=== PATIENT | female | born 1945 | race Caucasian/White ===

== ENCOUNTER 2020-11-04 10:02 | Emergency (ER) | payer OTHER ==
[~2020-11-04] VITALS: Ht 167.6 cm; Wt 89.8 kg
[2020-11-04 10:43] LABS: BASOPHILS ABSOLUTE AUTO 0.04 K/mm3 (0.00-0.23); BASOPHILS PERCENT AUTO 1 % (0-2); EOSINOPHILS ABSOLUTE AUTO 0.15 K/mm3 (0.00-0.68); EOSINOPHILS PERCENT AUTO 2 % (0-6); Hematocrit 42.3 % (33.0-51.0); Hemoglobin 13.1 g/dL (11.5-16.0); IMMATURE GRAN ABSOLUTE AUTO 0.02 K/mm3 (0.00-0.10); IMMATURE GRAN PERCENT AUTO 0 % (0-1); LYMPHOCYTES ABSOLUTE AUTO 1.27 K/mm3 (0.84-5.20); LYMPHOCYTES PERCENT AUTO 18 % (21-46); MONOCYTES ABSOLUTE AUTO 0.46 K/mm3 (0.16-1.47); MONOCYTES PERCENT AUTO 7 % (4-13); Mean Corpuscular HGB 27.8 pg (26.0-34.0); Mean Corpuscular Volume 90 fL (80-100); NEUTROPHILS ABSOLUTE AUTO 5.19 K/mm3 (1.96-9.15); NEUTROPHILS PERCENT AUTO 73 % (41-73); Platelet Count 183 K/mm3 (150-400); RDW Coefficient Variation 14.2 % (11.7-14.2); RDW Standard Deviation 46.9 fL (35.1-46.3); Red Blood Cell Count 4.71 M/mm3 (3.80-5.20); White Blood Cell Count 7.13 K/mm3 (4.00-11.30)
[2020-11-04] MEDS ORDERED: LEVSOD112 PO (10:49)
[2020-11-04] MEDS ORDERED: LORA.5 PO (10:49)
[2020-11-04] MEDS ORDERED: ATOR20 PO (10:49)
[2020-11-04 10:53] LABS: Alanine Aminotransfer (ALT/SGP 20 U/L (12-78); Albumin, Blood 3.4 g/dL (3.4-5.0); Albumin/Globulin Ratio 0.9 (0.8-1.8); Alk Phos 121 U/L (50-136); Anion Gap 6 mmol/L (6-16); Aspartate Aminotrans (AST/SGOT 20 U/L (12-37); Bilirubin, Total 1.6 mg/dL (0.1-1.0); Blood Urea Nitrogen 15 mg/dL (8-24); Bun/Creatinine Ratio 22.8 (12.0-20.0); CO2, Blood 28 mmol/L (21-32); Calcium, Blood 8.7 mg/dL (8.5-10.1); Chloride, Blood 107 mmol/L (98-108); Creatinine, Blood 0.66 mg/dL (0.40-1.00); Globulin, Blood 3.8 g/dL (2.2-4.0); Glomerular Filtration Rate >60 (60-); Glucose, Blood 147 mg/dL (70-99); Potassium, Blood 4.1 mmol/L (3.5-5.5); Sodium, Blood 141 mmol/L (136-145); Total Protein, Blood 7.2 g/dL (6.4-8.2)
== END 2020-11-04 11:50 | disposition home or self-care (01) ==
LOC: ER 10:02
PROVIDERS: Physician Assistant
DX: R42 Dizziness and giddiness (principal); Z88.0 Allergy status to penicillin; Z88.8 Allergy status to other drugs, medicaments and biological substances; Z95.5 Presence of coronary angioplasty implant and graft; Z79.899 Other long term (current) drug therapy
CPT/HCPCS: 36415; 80053; 85025; 93005; 93010; 96374; 99284-25; A9270; J2060

== ENCOUNTER 2021-01-23 12:38 | Emergency (ER) | payer OTHER ==
[~2021-01-23] VITALS: Ht 167.6 cm; Wt 90.7 kg
[~2021-01-23 12:38] MED LIST: ATOR20 PO; LEVSOD112 PO; LORA.5 PO
[2021-01-23 13:29] LABS: BASOPHILS ABSOLUTE AUTO 0.05 K/mm3 (0.00-0.23); BASOPHILS PERCENT AUTO 1 % (0-2); EOSINOPHILS PERCENT AUTO 4 % (0-6); Hematocrit 40.3 % (33.0-51.0); Hemoglobin 12.7 g/dL (11.5-16.0); IMMATURE GRAN ABSOLUTE AUTO 0.05 K/mm3 (0.00-0.10); IMMATURE GRAN PERCENT AUTO 1 % (0-1); LYMPHOCYTES ABSOLUTE AUTO 1.44 K/mm3 (0.84-5.20); LYMPHOCYTES PERCENT AUTO 17 % (21-46); MONOCYTES ABSOLUTE AUTO 0.51 K/mm3 (0.16-1.47); MONOCYTES PERCENT AUTO 6 % (4-13); Mean Corpuscular HGB 28.8 pg (26.0-34.0); Mean Corpuscular HGB Conc 31.5 g/dL (31.5-36.5); Mean Corpuscular Volume 91 fL (80-100); Mean Platelet Volume 11.1 fL (9.1-12.4); NEUTROPHILS ABSOLUTE AUTO 5.97 K/mm3 (1.96-9.15); NEUTROPHILS PERCENT AUTO 72 % (41-73); Platelet Count 203 K/mm3 (150-400); RDW Coefficient Variation 15.4 % (11.7-14.2); RDW Standard Deviation 52.2 fL (35.1-46.3); Red Blood Cell Count 4.41 M/mm3 (3.80-5.20); White Blood Cell Count 8.32 K/mm3 (4.00-11.30)
[2021-01-23 13:37] LABS: Alanine Aminotransfer (ALT/SGP 19 U/L (12-78); Albumin, Blood 3.7 g/dL (3.4-5.0); Albumin/Globulin Ratio 0.9 (0.8-1.8); Alk Phos 129 U/L (50-136); Anion Gap 2 mmol/L (6-16); Aspartate Aminotrans (AST/SGOT 14 U/L (12-37); Bilirubin, Total 1.5 mg/dL (0.1-1.0); Blood Urea Nitrogen 13 mg/dL (8-24); Bun/Creatinine Ratio 17.2 (12.0-20.0); CO2, Blood 31 mmol/L (21-32); Calcium, Blood 8.8 mg/dL (8.5-10.1); Chloride, Blood 105 mmol/L (98-108); Creatinine, Blood 0.75 mg/dL (0.40-1.00); Globulin, Blood 3.9 g/dL (2.2-4.0); Glomerular Filtration Rate >60 (60-); Glucose, Blood 157 mg/dL (70-99); Potassium, Blood 4.2 mmol/L (3.5-5.5); Sodium, Blood 138 mmol/L (136-145); Total Protein, Blood 7.6 g/dL (6.4-8.2)
[2021-01-23] MEDS ORDERED: ONDA4ODT MM ×2 (15:30→16:50)
[2021-01-23] MEDS ORDERED: Ativan1 MG PO (15:30)
[2021-01-23] MEDS ORDERED: MECL12.5 PO ×2 (15:30→16:50)
[2021-01-23] MEDS ORDERED: Ativan0.5 MG PO (16:50)
== END 2021-01-23 17:03 | disposition home or self-care (01) ==
LOC: ER 12:38
PROVIDERS: Emergency Medicine
DX: R42 Dizziness and giddiness (principal); R11.0 Nausea; Z79.899 Other long term (current) drug therapy
CPT/HCPCS: 36415; 80053; 85025; 93005; 93010; 99284-25; A9270

== ENCOUNTER 2022-04-30 13:52 | Observation (INO) | payer SELFPAY ==
[~2022-04-30] VITALS: Ht 167.6 cm; Wt 89.5 kg
[~2022-04-30 13:52] MED LIST changes: +Ativan0.5 MG PO; +Ativan1 MG PO; +MECL12.5 PO; +ONDA4ODT MM
[2022-04-30 20:33] LABS: BASOPHILS ABSOLUTE AUTO 0.04 K/mm3 (0.00-0.23); BASOPHILS PERCENT AUTO 0 % (0-2); EOSINOPHILS ABSOLUTE AUTO 0.19 K/mm3 (0.00-0.68); EOSINOPHILS PERCENT AUTO 2 % (0-6); Hemoglobin 12.2 g/dL (11.5-16.0); IMMATURE GRAN ABSOLUTE AUTO 0.03 K/mm3 (0.00-0.10); IMMATURE GRAN PERCENT AUTO 0 % (0-1); LYMPHOCYTES ABSOLUTE AUTO 1.33 K/mm3 (0.84-5.20); LYMPHOCYTES PERCENT AUTO 14 % (21-46); MONOCYTES ABSOLUTE AUTO 0.76 K/mm3 (0.16-1.47); MONOCYTES PERCENT AUTO 8 % (4-13); Mean Corpuscular HGB 28.1 pg (26.0-34.0); Mean Corpuscular HGB Conc 31.3 g/dL (31.5-36.5); Mean Corpuscular Volume 90 fL (80-100); NEUTROPHILS PERCENT AUTO 76 % (41-73); Platelet Count 176 K/mm3 (150-400); RDW Coefficient Variation 14.5 % (11.7-14.2); RDW Standard Deviation 47.8 fL (35.1-46.3); Red Blood Cell Count 4.34 M/mm3 (3.80-5.20); White Blood Cell Count 9.65 K/mm3 (4.00-11.30)
[2022-04-30 20:35] LABS: Mean Platelet Volume 13.4 fL (9.1-12.4)
[2022-04-30 20:37] LABS: Source, Urine Voided
[2022-04-30 20:42] LABS: Blood, Urine 2+ (Neg); Glucose Qualitative, Urine Neg (Neg); Ketones, Urine 1+ (Neg); Leukocyte Esterase, Urine 1+ (Neg); Nitrite, Urine Neg (Neg); Protein, Urine 2+ (Neg); Urobilinogen, Urine 2+ (Normal)
[2022-04-30 20:46] LABS: Alanine Aminotransfer (ALT/SGP 22 U/L (12-78); Albumin, Blood 3.9 g/dL (3.4-5.0); Alk Phos 106 U/L (50-136); Anion Gap 6 mmol/L (6-16); Aspartate Aminotrans (AST/SGOT 41 U/L (12-37); Bilirubin, Total 3.7 mg/dL (0.1-1.0); Blood Urea Nitrogen 31 mg/dL (8-24); Bun/Creatinine Ratio 30.4 (12.0-20.0); CO2, Blood 28 mmol/L (21-32); Calcium, Blood 9.2 mg/dL (8.5-10.1); Chloride, Blood 106 mmol/L (98-108); Creatinine, Blood 1.02 mg/dL (0.40-1.00); Globulin, Blood 3.8 g/dL (2.2-4.0); Glomerular Filtration Rate 58 (60-); Glucose, Blood 111 mg/dL (70-99); Sodium, Blood 140 mmol/L (136-145); Total Protein, Blood 7.7 g/dL (6.4-8.2)
[2022-04-30 20:49] LABS: Bilirubin, Urine 2+ (Neg); Color, Urine Amber (P-Yellow)
[2022-04-30 20:50] LABS: Appearance, Urine Clear (Clear); Red Blood Cells, Urine 0-2 /hpf (0-2); White Blood Cells, Urine 0-2 /hpf (0-5)
[2022-04-30 20:51] LABS: Bacteria Rare /hpf; Squamous Epithelial Cells Rare /hpf (Few)
[2022-04-30 23:15] LABS: Ethanol (Alcohol), Blood, Med <3 mg/dL
[2022-05-01 00:50] LABS: Source, Urine Straight Cath
[2022-05-01 02:18] LABS: Bilirubin, Urine Neg (Neg); Blood, Urine 2+ (Neg); Glucose Qualitative, Urine Neg (Neg); Ketones, Urine 1+ (Neg); Leukocyte Esterase, Urine Neg (Neg); Nitrite, Urine Pos (Neg); Protein, Urine 1+ (Neg); Urobilinogen, Urine NORM (Normal)
[2022-05-01 02:26] LABS: Appearance, Urine Hazy (Clear); Bacteria Many /hpf; Color, Urine Yellow (P-Yellow); Red Blood Cells, Urine 0-2 /hpf (0-2); Squamous Epithelial Cells Mod /hpf (Few); U Amphetamine Screen Not Detected; U Barbituate Screen Not Detected; U Benzodiazapine Screen DETECTED; U Buprenorphine Screen Not Detected; U Cannabinoids Screen Not Detected; U Cocaine Screen Not Detected; U Methadone Screen Not Detected; U Methamphetamine Screen Not Detected; U Opiates Screen Not Detected; U Oxycodone Screen Not Detected; U Phencyclidine Screen Not Detected; U Propoxyphene Screen Not Detected
[2022-05-01 03:49] LABS: Influenza A, PCR NEGATIVE (NEGATIVE); Influenza B, PCR NEGATIVE (NEGATIVE); Resp Syncytial Virus, PCR NEGATIVE (NEGATIVE); SARS-Cov-2 (COVID-19) PCR, MMC NEGATIVE (NEGATIVE)
[2022-05-01 06:47] LABS: Albumin, Blood 3.3 g/dL (3.4-5.0); Bilirubin, Total 3.1 mg/dL (0.1-1.0); Bun/Creatinine Ratio 36.8 (12.0-20.0); Calcium, Blood 8.1 mg/dL (8.5-10.1); Creatinine, Blood 0.68 mg/dL (0.40-1.00); Globulin, Blood 3.4 g/dL (2.2-4.0); Potassium, Blood 3.9 mmol/L (3.5-5.5); Total Protein, Blood 6.7 g/dL (6.4-8.2)
[2022-05-01 08:06] LABS: BASOPHILS ABSOLUTE AUTO 0.02 K/mm3 (0.00-0.23); BASOPHILS PERCENT AUTO 0 % (0-2); EOSINOPHILS ABSOLUTE AUTO 0.24 K/mm3 (0.00-0.68); EOSINOPHILS PERCENT AUTO 4 % (0-6); Hematocrit 35.5 % (33.0-51.0); Hemoglobin 11.2 g/dL (11.5-16.0); IMMATURE GRAN ABSOLUTE AUTO 0.02 K/mm3 (0.00-0.10); IMMATURE GRAN PERCENT AUTO 0 % (0-1); LYMPHOCYTES ABSOLUTE AUTO 1.13 K/mm3 (0.84-5.20); LYMPHOCYTES PERCENT AUTO 17 % (21-46); MONOCYTES ABSOLUTE AUTO 0.52 K/mm3 (0.16-1.47); MONOCYTES PERCENT AUTO 8 % (4-13); Mean Corpuscular HGB 28.1 pg (26.0-34.0); Mean Corpuscular HGB Conc 31.5 g/dL (31.5-36.5); Mean Corpuscular Volume 89 fL (80-100); Mean Platelet Volume 10.8 fL (9.1-12.4); NEUTROPHILS ABSOLUTE AUTO 4.59 K/mm3 (1.96-9.15); NEUTROPHILS PERCENT AUTO 70 % (41-73); Platelet Count 150 K/mm3 (150-400); RDW Coefficient Variation 14.4 % (11.7-14.2); RDW Standard Deviation 46.9 fL (35.1-46.3); Red Blood Cell Count 3.98 M/mm3 (3.80-5.20); White Blood Cell Count 6.52 K/mm3 (4.00-11.30)
[2022-05-01] MEDS ORDERED: TRANSDERM-SCOP1 EA10 TD (11:19)
--- NOTE | 2022-05-01 13:22 | NUR ---
ADMIT PATIENT ADMITTED FROM ER AT 1111. PATIENT SETTLED INTO ROOM. PATIENT ORIENTED TO CALL LIGHT AND TV CONTROLS. ADMISSION COMPLETE. PATIENT A&O X4 AT THIS TIME. PATIENT IS A SBA. PATIENT HAS LR RUNNING AT 100MLS/HR. PATIENT USING CALL LIGHT APPROPRIATELY.
[2022-05-01] MEDS ORDERED: SYNTHROID50 MC1 PO (16:23)
[2022-05-01] MEDS ORDERED: THYR60 PO (16:23)
--- NOTE | 2022-05-01 16:23 | NUR ---
SHIFT SUMMARY PATIENT DENIES PAIN, NAUSEA, AND SHORTNESS OF BREATH. PATIENT IS A SBA IN ROOM. PATIENT HAS LR RUNNING AT 100MLS/HR. PATIENT A&O X4. PATIENT HAS HAD NO CONFUSION OR HALLUCINATIONS FOR THIS RN SINCE ADMISSION. PATIENT WORKED WITH PT AND OT. BOTH SIGNED OFF ON HER. PATIENT IS EATING AND DRINKING WELL. PATIENT IS PLEASANT AND COOPERATIVE WITH CARE.
[2022-05-01] MEDS ORDERED: VENL75ER (17:03)
[2022-05-01 17:05] LABS: C-REACTIVE PROTEIN, EXT RANGE 1.51 mg/dL (0.000-0.300)
[2022-05-01 17:09] LABS: Free Thyroxine 1.1 ng/dL (0.70-1.60)
[2022-05-01 17:28] LABS: Thyroid Stimulating Hormone 0.692 uIU/mL (0.360-4.800); Triiodothyronine, Free 2.2 pg/mL (2.18-3.98)
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
[2022-05-02 09:36] LABS: CHOL/HDL RATIO 1.9; Cholesterol 113 mg/dL (50-200); HDL Cholesterol 60 mg/dL (>39); LDL/HDL RATIO 0.6; Low Density Lipoprotein Chol 34 mg/dL (0-110); Triglycerides 94 mg/dL (30-160); Very Low Density Lipoprot Chol 18 mg/dL (6-32)
--- NOTE | 2022-05-02 11:54 | NUR ---
Supportive visit this AM. Pt sitting in chair upon arrival. Pt's daughter at bedside. Pt reports feeling better and daughter reports seeing a significant improvement with Pt's mentation. Offered suggestions to assist with UTI prevention such as adequate water and not holding bladder. Discussed considering completing advanced directive. Pt and daughter express interest. Educated on each section to complete and educated on choices. Discussed the importance of appointing a healthcare medical device sales representative. Pt and daughter express appreciation and will consider completing. Palliative Care will remain available.
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
[2022-05-03 05:16] LABS: Hematocrit 36.5 % (33.0-51.0); Hemoglobin 11.5 g/dL (11.5-16.0); Mean Corpuscular HGB 28.1 pg (26.0-34.0); Mean Corpuscular HGB Conc 31.5 g/dL (31.5-36.5); Mean Corpuscular Volume 89 fL (80-100); Mean Platelet Volume 11.5 fL (9.1-12.4); Platelet Count 161 K/mm3 (150-400); RDW Coefficient Variation 14.1 % (11.7-14.2); RDW Standard Deviation 45.7 fL (35.1-46.3); Red Blood Cell Count 4.09 M/mm3 (3.80-5.20); White Blood Cell Count 5.65 K/mm3 (4.00-11.30)
--- NOTE | 2022-05-03 05:26 | NUR ---
SHIFT SUMMARY 76 YR F ADMITTED ON 04/30/22 FOR UTI AND TOXIC METABOLIC ENCEPHALOPATHY. FULL CODE. NO ACUTE CHANGES THIS SHIFT. PT HAS MOMENTS OF CONFUSION BUT SEEMS TO RECOGNIZE IT AND WILL VERBALLY REMIND HERSELF THAT SHE IS IN THE HOSPITAL. IV IN LEFT ARM INFILTRATED SO IT WAS REMOVED AND A NEW IV WAS PLACED IN THE LEFT HAND. SHE IS VERY PLEASANT AND FRIENDLY AND IS COOPERATIVE WITH CARE. SHE EXPRESSES THAT SHE WANTS TO GET BETTER AND NOT BE CONFUSED. VS ARE STABLE AND BED IS IN LOW POSITION WITH CALL LIGHT IN REACH. PT REMAINS INDEPENDANT IN THE ROOM AND IS ABLE TO CALL APPROPRIATELY FOR HER NEEDS.
[2022-05-03 05:45] LABS: Albumin, Blood 3.2 g/dL (3.4-5.0); Albumin/Globulin Ratio 0.9 (0.8-1.8); Bilirubin, Total 1.6 mg/dL (0.1-1.0); Bun/Creatinine Ratio 16.5 (12.0-20.0); Calcium, Blood 8.5 mg/dL (8.5-10.1); Creatinine, Blood 0.73 mg/dL (0.40-1.00); Globulin, Blood 3.5 g/dL (2.2-4.0); Potassium, Blood 3.9 mmol/L (3.5-5.5); Total Protein, Blood 6.7 g/dL (6.4-8.2)
--- NOTE | 2022-05-03 17:49 | NUR ---
SHIFT SUMMARY PTN A&O X3-4, CONFUSED AT TIMES. INDEPENENT IN ROOM, OUT IN HALLWAY FOR WALK WITH WALKER. CONTINENT AND UP TO BATHROOM. SITTING IN CHAIR FOR MUCH OF DAY. NEW PERIPHERAL IV TO LEFT HAND. ABX ROCEPHIN WITH NS. ON ROOM AIR. SKIN TEAR TO RIGHT ARM, CLEANED AND DRESSED WITH MEPITEL. ORDER FOR DEBROX BID TO BOTH EARS STARTED. CONTINUE TO MONITOR.
--- NOTE | 2022-05-04 05:08 | NUR ---
SHIFT SUMMARY 76 YR F ADMITTED ON 04/30/22 FOR UTI/TOXIC METABO;IC ENCEPHALOPATHY. FULL CODE. NO ACUTE CHANGES THIS SHIFT. PT STATES SHE IS FEELING MUCH BETTER AND SHE APPEARS TO BE FAR LESS CONFUSED THAN IN PREVIOUS DAYS. SHE IS HOPING TO DISCHARGE HOME TODAY. SHE STATED THAT HER DAUGHTER TOLD HER SOME OF THE "CRAZY" THINGS SHE WAS DOING BEFORE SHE CAME INTO THE HOSPITAL AND THAT SHE WAS EMBARASSED ABOUT IT. I EXPLAINED TO HER THAT A UTI IN AN OLDER PERSON CAN HAVE THAT AFFECT ON THEM AND THAT IT WAS NOT HER FAULT. SHE DOES NOT REMEMBER ANY OF IT. SHE IS A VERY NICE LADY AND IS COOPERATIVE WITH HER CARE. SHE APPEARS TO BE GETTING BACK TO HER BASELINE.
[2022-05-04 05:29] LABS: Hematocrit 38.7 % (33.0-51.0); Hemoglobin 12.1 g/dL (11.5-16.0); Mean Corpuscular HGB 27.8 pg (26.0-34.0); Mean Corpuscular HGB Conc 31.3 g/dL (31.5-36.5); Mean Corpuscular Volume 89 fL (80-100); Mean Platelet Volume 11.8 fL (9.1-12.4); Platelet Count 188 K/mm3 (150-400); RDW Coefficient Variation 14.1 % (11.7-14.2); RDW Standard Deviation 45.3 fL (35.1-46.3); Red Blood Cell Count 4.36 M/mm3 (3.80-5.20); White Blood Cell Count 6.54 K/mm3 (4.00-11.30)
[2022-05-04 05:59] LABS: Albumin, Blood 3.3 g/dL (3.4-5.0); Albumin/Globulin Ratio 0.8 (0.8-1.8); Bilirubin, Total 1.3 mg/dL (0.1-1.0); Bun/Creatinine Ratio 23.9 (12.0-20.0); Calcium, Blood 8.8 mg/dL (8.5-10.1); Creatinine, Blood 0.71 mg/dL (0.40-1.00); Globulin, Blood 3.9 g/dL (2.2-4.0); Potassium, Blood 4.3 mmol/L (3.5-5.5); Total Protein, Blood 7.2 g/dL (6.4-8.2)
[2022-05-04] MEDS ORDERED: LEVFLO500 PO (10:42)
[2022-05-04] MEDS ORDERED: Vitamin B Comple1 EA PO (10:43)
--- NOTE | 2022-05-04 14:44 | NUR ---
DISCHARGE SUMMARY PTN A&O, NOTABLE LESS CONFUSION, PLEASANT AND COOPERATIVE. PTN IV IN LEFT HAND DISCONTINUED, INTACT. PTN DISCHARGE PAPERWORK REVIEWED, MEDICATION REQUEST FAXED TO PHARMACY. PTN PLAN TO CALL PRIMARY CARE IN MORNING TO SET UP APPT. DIAGNOSIS SHEET FOR UTI AND NEW MEDICATIONS INCLUDED AND GONE OVER. PTN VOICED UNDERSTANDING. PTN ESCORTED VIA WHEELCHAIR FOR DEPARTURE WITH HER DAUGHTER.
== END 2022-05-04 14:29 | disposition home or self-care (01) ==
LOC: ER 13:52 → ERHOLD 13:53 → MEDS 05-01 11:11
PROVIDERS: Emergency Medicine; Family Medicine; Internal Medicine; Student in an Organized Health Care Education/Training Program; ADMIT Family Medicine
DX: G92.8 Other toxic encephalopathy (principal); N39.0 Urinary tract infection, site not specified; E03.9 Hypothyroidism, unspecified; I25.2 Old myocardial infarction; E86.0 Dehydration; N17.9 Acute kidney failure, unspecified; F41.9 Anxiety disorder, unspecified; S06.0X9A Concussion with loss of consciousness of unspecified duration, initial encounter; I45.10 Unspecified right bundle-branch block; Z88.0 Allergy status to penicillin; Z88.5 Allergy status to narcotic agent; Z88.8 Allergy status to other drugs, medicaments and biological substances; Z95.5 Presence of coronary angioplasty implant and graft; Z20.822 Contact with and (suspected) exposure to COVID-19
CPT/HCPCS: 0241U; 36415; 51701; 70450; 70496; 70498; 71045; 80053; 80061; 81001; 82140; 82607; 82746; 82947; 84439; 84443; 84481; 85025; 85027; 85651; 86140; 86592; 87077; 87086; 87186; 93005; 93010; 96372; 96374; 97116; 97162; 97165; 97530; 99285-25; A9270; G0378; G0480; J0696; J1650; J3420; J7030; J7040; J7120; Q9967

== ENCOUNTER 2024-10-01 14:43 | Emergency (ER) | payer OTHER ==
[~2024-10-01] VITALS: Ht 165.1 cm; Wt 81.7 kg
[~2024-10-01 14:43] MED LIST changes: +LEVFLO500 PO; +SULTRIDS PO; +SYNTHROID50 MC1 PO; +THYR60 PO; +TRANSDERM-SCOP1 EA10 TD; +VENL75ER; +Vitamin B Comple1 EA PO
[2024-10-01 15:22] LABS: BASOPHILS ABSOLUTE AUTO 0.03 K/mm3 (0.00-0.23); BASOPHILS PERCENT AUTO 1 % (0-2); EOSINOPHILS ABSOLUTE AUTO 0.25 K/mm3 (0.00-0.68); EOSINOPHILS PERCENT AUTO 4 % (0-6); Hematocrit 37.4 % (33.0-51.0); Hemoglobin 11.3 g/dL (11.5-16.0); IMMATURE GRAN ABSOLUTE AUTO 0.02 K/mm3 (0.00-0.10); IMMATURE GRAN PERCENT AUTO 0 % (0-1); LYMPHOCYTES ABSOLUTE AUTO 1.28 K/mm3 (0.84-5.20); LYMPHOCYTES PERCENT AUTO 19 % (21-46); MONOCYTES ABSOLUTE AUTO 0.49 K/mm3 (0.16-1.47); MONOCYTES PERCENT AUTO 7 % (4-13); Mean Corpuscular HGB 27.8 pg (26.0-34.0); Mean Corpuscular HGB Conc 30.2 g/dL (31.5-36.5); Mean Corpuscular Volume 92 fL (80-100); Mean Platelet Volume 10.7 fL (9.1-12.4); NEUTROPHILS ABSOLUTE AUTO 4.53 K/mm3 (1.96-9.15); NEUTROPHILS PERCENT AUTO 69 % (41-73); Platelet Count 225 K/mm3 (150-400); RDW Coefficient Variation 15.6 % (11.7-14.2); RDW Standard Deviation 52.3 fL (35.1-46.3); Red Blood Cell Count 4.07 M/mm3 (3.80-5.20)
[2024-10-01 15:28] VITALS: BP 118/64
[2024-10-01 15:42] LABS: Albumin, Blood 3.6 g/dL (3.4-5.0); Albumin/Globulin Ratio 0.9 (0.8-1.8); Bilirubin, Total 2.4 mg/dL (0.1-1.0); Calcium, Blood 8.8 mg/dL (8.5-10.1); Creatinine, Blood 0.67 mg/dL (0.40-1.00); Globulin, Blood 4.1 g/dL (2.2-4.0); Potassium, Blood 3.9 mmol/L (3.5-5.5); Total Protein, Blood 7.7 g/dL (6.4-8.2)
[2024-10-01] MEDS ORDERED: Furosemide 20 MG Tab PO ONE (17:15)
[2024-10-01] MEDS ORDERED: FURO20 PO (17:24)
== END 2024-10-01 17:45 | disposition home or self-care (01) ==
LOC: ER 14:43
PROVIDERS: Student in an Organized Health Care Education/Training Program
DX: I50.9 Heart failure, unspecified (principal); Z88.0 Allergy status to penicillin; Z88.8 Allergy status to other drugs, medicaments and biological substances; Z88.5 Allergy status to narcotic agent; Z79.899 Other long term (current) drug therapy; E03.9 Hypothyroidism, unspecified; Z85.3 Personal history of malignant neoplasm of breast; R05.9 Cough, unspecified; J84.9 Interstitial pulmonary disease, unspecified
CPT/HCPCS: 71046; 80053; 83880; 84484; 85025; 93005; 93010; 99285-25; A9270

== ENCOUNTER 2024-10-27 02:07 | Inpatient (IN) | payer OTHER ==
[~2024-10-27] VITALS: Ht 167.6 cm; Wt 85.4 kg
[2024-10-27] VITALS (77 sets, daily range): BP systolic 68–139; BP diastolic 30–122
[~2024-10-27 02:07] MED LIST changes: +FURO20 PO
[2024-10-27] MEDS ORDERED: Ondansetron HCl 2 MG / ML 2ML Vial ONE ×3 (02:12→03:19)
[2024-10-27 02:24] LABS: Base Excess Venous 2.9 mmol/L; Bicarbonate Venous 25.8 mmol/L (24.0-30.0); pH Blood Venous 7.43 (7.34-7.37)
[2024-10-27 02:25] LABS: Calcium, Ionized (POC) 1.06 mmol/L (1.10-1.46); Chloride (POC) 101 mmol/L (98-108); Creatinine (POC) 0.9 mg/dL (0.6-1.0); Glucose (ISTAT POC) 235 mg/dL (70-99); Hemoglobin (POC) 12.6 g/dL (12.0-16.0); Sodium (POC) 138 mmol/L (135-148); Total CO2 (POC) 25 mmol/L (21-32)
[2024-10-27] MEDS ORDERED: Ticagrelor 90 MG TABLET PO ONE ×2 (02:35→06:26)
[2024-10-27] MEDS ORDERED: Heparin Sodium 5000 Units/ML 1ML MDV IV ONE (02:35)
[2024-10-27] MEDS ORDERED: Prochlorperazine Edisylate 10 mg Vial IV ONE (02:35)
[2024-10-27 02:36] LABS: BASOPHILS ABSOLUTE AUTO 0.04 K/mm3 (0.00-0.23); BASOPHILS PERCENT AUTO 1 % (0-2); EOSINOPHILS ABSOLUTE AUTO 0.27 K/mm3 (0.00-0.68); EOSINOPHILS PERCENT AUTO 4 % (0-6); Hematocrit 36.7 % (33.0-51.0); Hemoglobin 11.4 g/dL (11.5-16.0); IMMATURE GRAN ABSOLUTE AUTO 0.03 K/mm3 (0.00-0.10); IMMATURE GRAN PERCENT AUTO 0 % (0-1); LYMPHOCYTES ABSOLUTE AUTO 2.34 K/mm3 (0.84-5.20); LYMPHOCYTES PERCENT AUTO 31 % (21-46); MONOCYTES ABSOLUTE AUTO 0.68 K/mm3 (0.16-1.47); MONOCYTES PERCENT AUTO 9 % (4-13); Mean Corpuscular HGB 27.9 pg (26.0-34.0); Mean Corpuscular HGB Conc 31.1 g/dL (31.5-36.5); Mean Corpuscular Volume 90 fL (80-100); NEUTROPHILS ABSOLUTE AUTO 4.18 K/mm3 (1.96-9.15); NEUTROPHILS PERCENT AUTO 56 % (41-73); Platelet Count 206 K/mm3 (150-400); RDW Coefficient Variation 15.5 % (11.7-14.2); RDW Standard Deviation 50.9 fL (35.1-46.3); Red Blood Cell Count 4.08 M/mm3 (3.80-5.20); White Blood Cell Count 7.54 K/mm3 (4.00-11.30)
[2024-10-27 02:44] LABS: D-Dimer, Quantitative 0.46 mg/L FEU (0.00-0.52); International Normalized Ratio 1.02; Prothrombin Time Results 10.9 Sec (9.7-11.5)
[2024-10-27 02:52] LABS: Albumin, Blood 3.2 g/dL (3.4-5.0); Albumin/Globulin Ratio 0.8 (0.8-1.8); Bilirubin, Total 1.4 mg/dL (0.1-1.0); Bun/Creatinine Ratio 23.6 (12.0-20.0); Calcium, Blood 8.4 mg/dL (8.5-10.1); Creatinine, Blood 0.8 mg/dL (0.40-1.00); Globulin, Blood 3.8 g/dL (2.2-4.0); Magnesium, Blood 2.1 mg/dL (1.6-2.4); Potassium, Blood 4.1 mmol/L (3.5-5.5)
[2024-10-27] MEDS ORDERED: Verapamil HCL 2.5 MG/ML 2ML Injection ONE (02:55)
[2024-10-27] MEDS ORDERED: FentaNYL Citrate 50 MCG/ML 2 ML Injection ONE (02:55)
[2024-10-27] MEDS ORDERED: NS 2,000 ML IV ONE (02:56)
[2024-10-27] MEDS ORDERED: Midazolam HCl 1MG / ML 2ML Vial ONE (02:56)
[2024-10-27] MEDS ORDERED: NS 250 ML IV ONE (02:56)
[2024-10-27] MEDS ORDERED: Nitroglycerin 2 MG/20 ML BTL ONE (02:56)
[2024-10-27] MEDS ORDERED: Heparin Sodium 1000 Units/ML 10ML MDV ONE ×2 (02:56→04:09)
[2024-10-27] MEDS ORDERED: Aspirin 300 MG Supp PR ONE (03:10)
[2024-10-27] MEDS ORDERED: Atropine Sulfate 0.1 MG/ML 10ML SYR ONE (03:24)
[2024-10-27] MEDS ORDERED: Tirofiban HCL M-Hyd/NS 250 ML IV ONE (03:46)
[2024-10-27] MEDS ORDERED: EpiNEPhrine 1 MG/1 ML 1ML Vial ONE (04:17)
[2024-10-27] MEDS ORDERED: Furosemide 10 MG / ML 2ML Vial ONE (04:45)
[2024-10-27] MEDS ORDERED: FLU VACC TS2024-25(6MOS UP)/PF 45 MCG/0.5 ML SYRINGE IM ONE (05:25)
[2024-10-27] MEDS ORDERED: Ondansetron HCl 2 MG / ML 2ML Vial IV PRN (05:25)
[2024-10-27] MEDS ORDERED: Aspirin 81 MG Chew PO ONE (06:26)
[2024-10-27] MEDS ORDERED: DOPamine 400 MG/Dextrose 250 ML Bag IV ONE (06:26)
[2024-10-27] MEDS ORDERED: Atropine Sulfate 0.1 MG/ML 10ML SYR IV ONE (06:26)
[2024-10-27] MEDS ORDERED: Heparin Sodium,Porcine 5,000 UNIT/0.5 ML SDV SC ONE (06:26)
[2024-10-27 06:34] LABS: CORONAVIRUS COVID-19 AG Negative (NEGATIVE); INFLUENZA A AG Negative (NEGATIVE); INFLUENZA B AG Negative (NEGATIVE)
--- NOTE | 2024-10-27 06:46 | NUR ---
SHIFT SUMMARY: PT ARRIVED FROM COMMODITIES TRADER AT 0522. SHE WAS ALERT, BUT STILL SOMNOLENT FROM MEDICATIONS IN COMMODITIES TRADER. SHE WAS ON 5LPM O2 NC, TITRATED DOWN TO 3LPM. ON LEVO GTT @ 6, MAP ABOVE 65. AV BLOCK ON MONITOR, RATE IN 80S. TEMPORARY PACER IN GROIN SET TO 70 06/08. CATH SITE AT RIGHT WRIST SOFT, W/O HEMATOMA. DAUGHTER AT SIDE, EXPRESSED CONCERNS ABOUT PTS LIVING SITUATION AND ABILITY TO CARE FOR HERSELF AFTER DISCHARGE.
[2024-10-27 07:40] LABS: CHOL/HDL RATIO 2.1; Cholesterol 113 mg/dL (50-200); HDL Cholesterol 55 mg/dL (>39); LDL/HDL RATIO 0.6; Low Density Lipoprotein Chol 33 mg/dL (0-110); Triglycerides 124 mg/dL (30-160); Very Low Density Lipoprot Chol 24 mg/dL (6-32)
--- NOTE | 2024-10-27 08:24 | NUR ---
START OF SHIFT THIS NURSE ASSUMED CARE AT APPROXIMATELY 0700. PT RESTING COMFORTABLY IN BED WITHOUT ANY COMPLAINTS OF DISCOMFORT OR PAIN. PT TR BAND INFLATED WITH 11ML OF AIR REPORTED BY PREVIOUS NURSE. PT EXPERIENCED OOZING AT THE SITE AT 4MLS OF AIR SO 2ML ADDED. WILL CONTINUE TO MONITOR AND DEFLATE TR BAND APPROPRIATE. PT ON 2L NC. PT REPORTS HAVING PNA SINCE AUGUST. PT HAS NO S/S OF DYSPNEA OR INCREASED WORK OF BREATHING. WILL CONTINUE WITH THE PLAN OF CARE.
[2024-10-27] MEDS ORDERED: Aspirin 81 MG Chew PO SCH (09:00)
[2024-10-27] MEDS ORDERED: Ticagrelor 90 MG TABLET PO SCH (09:00)
[2024-10-27] MEDS ORDERED: Atorvastatin 40 MG Tab PO SCH (09:00)
[2024-10-27] MEDS ORDERED: EPINEPhrine HCl 0.1 MG/ML 10ML SYR XX ONE (13:47)
--- NOTE | 2024-10-27 14:19 | NUR ---
Spiritual Care Visit. Pt. is awake in bed when she welcomes my visit. Pt. is pleasant. A life review is conducted and matters of rigo and belief are considered. Pt. verbalizes that she loves her confucianism family. Listen with interest and empathy. Prayed for Pt. Pt. verbalized gratitude for the spiritual care visit.
[2024-10-27] MEDS ORDERED: Acetaminophen 325 MG TABLET PO PRN (15:55)
--- NOTE | 2024-10-27 17:28 | NUR ---
SHIFT SUMMARY PT RESTING IN BED. PT HR 92. EKG TAKEN IN AFTERNOON, SEE PHYSICAL CHART. PT RECIEVED AND ECHO AND TR BAND TAKEN DOWN. PT EXPERIENCED SLIGHT OOZING AT SIGHT AND 2ML WERE ADDED UNTIL OOZING STOPPED. TR BAND TAKEN DOWN AT 1200. PT ON 2L NC WITH MAP GOALS ABOVE 60. PT ON 2MCG OF LEVO. PT DENIES CHEST PAIN OR DISCOMFORT. PT COMPLAINS OF [place]ET[place] AND STATED SHE DRINKS COFFEE DAILY, PROVIDER NOTIFIED AND ACETAMINOPHEN ORDERED AND GIVEN. WILL CONTINUE WITH THE PLAN OF CARE.
[2024-10-28] VITALS (48 sets, daily range): BP systolic 86–118; BP diastolic 48–89
[2024-10-28] MEDS ORDERED: Phentolamine Mesylate 5 MG/2 ML Vial SC ONE (01:10)
[2024-10-28] MEDS ORDERED: Midodrine 5 MG Tab PO PRN (02:15)
--- NOTE | 2024-10-28 03:16 | NUR ---
PT COUGHED UP SMALL AMOUNT OF ALEKSANDAR RED BLOODY MUCOUS. ONLY INSTANCE SO FAR, NOTIFIED NIKI.
[2024-10-28 04:10] LABS: BASOPHILS ABSOLUTE AUTO 0.02 K/mm3 (0.00-0.23); BASOPHILS PERCENT AUTO 0 % (0-2); EOSINOPHILS ABSOLUTE AUTO 0.12 K/mm3 (0.00-0.68); EOSINOPHILS PERCENT AUTO 2 % (0-6); IMMATURE GRAN ABSOLUTE AUTO 0.02 K/mm3 (0.00-0.10); IMMATURE GRAN PERCENT AUTO 0 % (0-1); LYMPHOCYTES ABSOLUTE AUTO 0.76 K/mm3 (0.84-5.20); LYMPHOCYTES PERCENT AUTO 11 % (21-46); MONOCYTES ABSOLUTE AUTO 0.51 K/mm3 (0.16-1.47); MONOCYTES PERCENT AUTO 7 % (4-13); Mean Corpuscular HGB 27.4 pg (26.0-34.0); Mean Corpuscular HGB Conc 30.3 g/dL (31.5-36.5); Mean Corpuscular Volume 90 fL (80-100); Mean Platelet Volume 10.9 fL (9.1-12.4); NEUTROPHILS ABSOLUTE AUTO 5.76 K/mm3 (1.96-9.15); NEUTROPHILS PERCENT AUTO 80 % (41-73); Platelet Count 160 K/mm3 (150-400); RDW Coefficient Variation 15.6 % (11.7-14.2); Red Blood Cell Count 3.65 M/mm3 (3.80-5.20); White Blood Cell Count 7.19 K/mm3 (4.00-11.30)
[2024-10-28 04:45] LABS: Albumin/Globulin Ratio 0.8 (0.8-1.8); Bilirubin, Total 1.4 mg/dL (0.1-1.0); Bun/Creatinine Ratio 20.2 (12.0-20.0); Calcium, Blood 8.5 mg/dL (8.5-10.1); Creatinine, Blood 0.79 mg/dL (0.40-1.00); Globulin, Blood 3.6 g/dL (2.2-4.0); Potassium, Blood 3.8 mmol/L (3.5-5.5); Total Protein, Blood 6.6 g/dL (6.4-8.2)
--- NOTE | 2024-10-28 05:31 | NUR ---
SHIFT SUMMARY: PT HAS BEEN APPROPRIATELY ORIENTED AND COOPERATIVE WITH CARE THROUGHOUT SHIFT. SHE HAS DENIED PAIN ASIDE FROM TENDERNESS AT CATH SITE AND PACER INSERTION SITE. BOTH SITES REMAIN SOFT AND W/O BRUISING. SHE HAS DENIED DYSPNEA. PT HAS BEEN IN A BLOCK IN THE 80S WITH A MAP ABOVE 60. HER IV SITE WITH LEVO GTT INFILTRATED WITH GTT AT 2 MCG/MIN. PRINCE WAS NOTIFIED AND PHENTOLAMINE WAS ADMINISTERED AND EXTREMITY PLACED ON HEATING PAD. PTS BP HAS REMAINED STABLE WITHOUT LEVOPHED.
[2024-10-28] MEDS ORDERED: Levothyroxine Sodium 0.05 MG Tab PO SCH (06:00)
[2024-10-28] MEDS ORDERED: Thyroid 60 MG Tab PO SCH (06:00)
[2024-10-28] MEDS ORDERED: Venlafaxine HCl 75 MG CapCR PO SCH (09:00)
--- NOTE | 2024-10-28 12:17 | NUR ---
Spiritual Care Visit. Pt. is awake in bed listening to music when she welcomed my visit. Pt. is pleasant but does verbalize uncertainty about what her plan of care is. Facilitated a lengthy life review which melded into common community relationship contacts. As a result rapport is firmly established. Pts. nurse had brought her lunch. Prayed for the Pt. Pt. verbalized gratitude for the spiritual care visit.
--- NOTE | 2024-10-28 18:06 | NUR ---
SHIFT SUMMARY PT RESTING IN BED. CARDIOLOGY REQUESTED ADDITIONAL EKG, SEE PHYSICAL CHART. CARDIOLOGY ALSO CAME TO BEDSIDE AND ASSESSED PT, PACEMAKER DC. PT HAS NO FURTHER COMPLAINTS OR DISCOMFORT. STATUS CHANGED TO PCU. PT REMAINS ON 2L NC. BP HAS BEEN STABLE THROUGHOUT THE DAY. WILL CONTINUE WITH THE PLAN OF CARE.
[2024-10-28] MEDS ORDERED: Clopidogrel Bisulfate 300 MG Cap PO ONE (20:00)
[2024-10-29] VITALS (7 sets, daily range): BP systolic 86–108; BP diastolic 52–80
[2024-10-29 04:02] LABS: BASOPHILS ABSOLUTE AUTO 0.01 K/mm3 (0.00-0.23); BASOPHILS PERCENT AUTO 0 % (0-2); EOSINOPHILS ABSOLUTE AUTO 0.21 K/mm3 (0.00-0.68); EOSINOPHILS PERCENT AUTO 3 % (0-6); Hematocrit 31.7 % (33.0-51.0); Hemoglobin 9.6 g/dL (11.5-16.0); IMMATURE GRAN ABSOLUTE AUTO 0.02 K/mm3 (0.00-0.10); IMMATURE GRAN PERCENT AUTO 0 % (0-1); LYMPHOCYTES ABSOLUTE AUTO 1.03 K/mm3 (0.84-5.20); LYMPHOCYTES PERCENT AUTO 14 % (21-46); MONOCYTES ABSOLUTE AUTO 0.63 K/mm3 (0.16-1.47); MONOCYTES PERCENT AUTO 8 % (4-13); Mean Corpuscular HGB 27.7 pg (26.0-34.0); Mean Corpuscular HGB Conc 30.3 g/dL (31.5-36.5); Mean Corpuscular Volume 92 fL (80-100); Mean Platelet Volume 11.2 fL (9.1-12.4); NEUTROPHILS ABSOLUTE AUTO 5.71 K/mm3 (1.96-9.15); NEUTROPHILS PERCENT AUTO 75 % (41-73); Platelet Count 145 K/mm3 (150-400); RDW Coefficient Variation 15.7 % (11.7-14.2); RDW Standard Deviation 51.8 fL (35.1-46.3); Red Blood Cell Count 3.46 M/mm3 (3.80-5.20); White Blood Cell Count 7.61 K/mm3 (4.00-11.30)
[2024-10-29 04:25] LABS: Albumin, Blood 2.8 g/dL (3.4-5.0); Albumin/Globulin Ratio 0.8 (0.8-1.8); Bilirubin, Total 1.4 mg/dL (0.1-1.0); Bun/Creatinine Ratio 21.5 (12.0-20.0); Calcium, Blood 8.6 mg/dL (8.5-10.1); Creatinine, Blood 0.61 mg/dL (0.40-1.00); Globulin, Blood 3.5 g/dL (2.2-4.0); Total Protein, Blood 6.3 g/dL (6.4-8.2)
--- NOTE | 2024-10-29 05:20 | NUR ---
SHIFT SUMMERY PT IS ALERT AND ORIENTED X 4. SHE HAS HAD NO COMPLAINTS OF CHEST PAIN/PRESSURE OVERNIGHT. BP HAS BEEN W/IN NORMAL LIMITS. PT HAS GENERALIZED WEAKNESS, ABLE TO SIT ON BEDSIDE COMMODE W/NURSE ASSIST. NO ACUTE CHANGES OVERNIGHT
[2024-10-29] MEDS ORDERED: Clopidogrel Bisulfate 300 MG Cap PO ONE (07:00)
--- NOTE | 2024-10-29 07:50 | NUR ---
START OF SHIFT PT IS RESTING IN BED WITHOUT ANY COMPLAINTS OF CHEST PAIN OR DISCOMFORT. PT IS ON 2L NC SAT ABOVE 95%. WILL CONTINUE WITH THE PLAN OF CARE.
--- NOTE | 2024-10-29 17:29 | NUR ---
PATIENT ARRIVED TO FLOOR WHILE THIS RN ON BREAK. UPON RETURNING THIS RN ASSUMED CARE OF PATIENT. IV RAC FLUSHED AND SALINE LOCKED. DRESSING REMOVED FROM ACCESS SITE RIGHT ANTERIOR WRIST; SMALL PICTURE SITE WITHOUT S/Sx INFx. TELE PLACED. NO ACUTE NEEDS. BED IN LOWEST POSITION, CALL LIGHT WITHIN REACH, 3LPM/NC IN PLACE.
--- NOTE | 2024-10-29 18:17 | NUR ---
END OF SHIFT SUMMARY: A&Ox4. PLEASANT AND COOPERATIVE WITH CARE. CALLS APPROPRIATELY AND IS ABLE TO ADVOCATE NEEDS EFFECTIVELY. CONTINENT c URGE INCONTINENCE; RAZ IN ICU AND CHANGED TO BSC c 1PA & FWW. MEDS WHOLE c FLUIDS. NO C/O PAIN OR DISCOMFORT. TELE NSR. BED IN LOWEST POSITION, CALL LIGHT WITHIN REACH, ALL NEEDS MET. REPORT TO ONCOMING NURSE.
[2024-10-30 02:31] VITALS: BP 105/57
[2024-10-30 05:40] VITALS: BP 107/61
[2024-10-30 05:41] LABS: BASOPHILS ABSOLUTE AUTO 0.03 K/mm3 (0.00-0.23); BASOPHILS PERCENT AUTO 1 % (0-2); EOSINOPHILS ABSOLUTE AUTO 0.22 K/mm3 (0.00-0.68); EOSINOPHILS PERCENT AUTO 3 % (0-6); Hematocrit 35.7 % (33.0-51.0); Hemoglobin 10.7 g/dL (11.5-16.0); IMMATURE GRAN ABSOLUTE AUTO 0.03 K/mm3 (0.00-0.10); IMMATURE GRAN PERCENT AUTO 1 % (0-1); LYMPHOCYTES ABSOLUTE AUTO 0.89 K/mm3 (0.84-5.20); LYMPHOCYTES PERCENT AUTO 13 % (21-46); MONOCYTES ABSOLUTE AUTO 0.51 K/mm3 (0.16-1.47); MONOCYTES PERCENT AUTO 8 % (4-13); Mean Corpuscular HGB 27.6 pg (26.0-34.0); Mean Corpuscular Volume 92 fL (80-100); Mean Platelet Volume 10.6 fL (9.1-12.4); NEUTROPHILS ABSOLUTE AUTO 4.94 K/mm3 (1.96-9.15); NEUTROPHILS PERCENT AUTO 75 % (41-73); Platelet Count 158 K/mm3 (150-400); RDW Coefficient Variation 15.5 % (11.7-14.2); Red Blood Cell Count 3.87 M/mm3 (3.80-5.20); White Blood Cell Count 6.62 K/mm3 (4.00-11.30)
[2024-10-30 06:33] LABS: Calcium, Blood 9.2 mg/dL (8.5-10.1); Creatinine, Blood 0.68 mg/dL (0.40-1.00); Potassium, Blood 4.4 mmol/L (3.5-5.5)
[2024-10-30 08:00] VITALS: BP 94/61
[2024-10-30] MEDS ORDERED: Clopidogrel Bisulfate 75 MG Tab PO SCH (09:00)
[2024-10-30 15:22] VITALS: BP 101/54
--- NOTE | 2024-10-30 18:25 | NUR ---
SUMMARY- PT AAOX4. IND IN ROOM. PT WENT FOR A WALK WITH HER CANE IN THE HALLS THIS SHIFT. PT WEANED OFF OXYGEN THIS SHIFT. PT ON RA NOW. PT'S TELE NS-ST IN THE 'S ON AVERAGE THIS SHIFT. NO ACUTE EVENTS THIS SHIFT. NO COMPLAINTS OF PAIN THIS SHIFT. GOOD APPETITE.
[2024-10-30 20:09] VITALS: BP 101/41
[2024-10-31 00:47] VITALS: BP 107/54
--- NOTE | 2024-10-31 04:23 | NUR ---
SHIFT SUMMARY 78 YR F ADMITTED ON 10/28/24. FULL CODE. NO ACUTE CHANGES THIS SHIFT. NO C/O SOB, CHEST PAIN, OR DISCOMFORT. SHE IS PLEASANT AND COOPERATIVE WITH CARE. A&O X 4 AND INDEPENDANT IN THE ROOM. SHE HAS SLEPT FOR MOST OF THIS SHIFT. WILL CONTINUE TO MONITOR. BED IN LOW POSITION AND CALL LIGHT IN REACH.
[2024-10-31 05:49] VITALS: BP 112/57
[2024-10-31 06:01] LABS: BASOPHILS ABSOLUTE AUTO 0.03 K/mm3 (0.00-0.23); BASOPHILS PERCENT AUTO 1 % (0-2); EOSINOPHILS ABSOLUTE AUTO 0.24 K/mm3 (0.00-0.68); EOSINOPHILS PERCENT AUTO 4 % (0-6); Hematocrit 35.7 % (33.0-51.0); Hemoglobin 10.7 g/dL (11.5-16.0); IMMATURE GRAN ABSOLUTE AUTO 0.02 K/mm3 (0.00-0.10); IMMATURE GRAN PERCENT AUTO 0 % (0-1); LYMPHOCYTES ABSOLUTE AUTO 0.97 K/mm3 (0.84-5.20); LYMPHOCYTES PERCENT AUTO 16 % (21-46); MONOCYTES ABSOLUTE AUTO 0.44 K/mm3 (0.16-1.47); MONOCYTES PERCENT AUTO 7 % (4-13); Mean Corpuscular Volume 90 fL (80-100); Mean Platelet Volume 10.8 fL (9.1-12.4); NEUTROPHILS ABSOLUTE AUTO 4.42 K/mm3 (1.96-9.15); NEUTROPHILS PERCENT AUTO 72 % (41-73); Platelet Count 158 K/mm3 (150-400); RDW Coefficient Variation 15.6 % (11.7-14.2); RDW Standard Deviation 51.8 fL (35.1-46.3); Red Blood Cell Count 3.96 M/mm3 (3.80-5.20); White Blood Cell Count 6.12 K/mm3 (4.00-11.30)
[2024-10-31 06:33] LABS: Bun/Creatinine Ratio 27.4 (12.0-20.0); Calcium, Blood 8.9 mg/dL (8.5-10.1); Creatinine, Blood 0.62 mg/dL (0.40-1.00); Potassium, Blood 4.3 mmol/L (3.5-5.5)
[2024-10-31 07:49] VITALS: BP 114/58
--- NOTE | 2024-10-31 08:48 | NUR ---
CALL FROM [facility]: LIFE VEST ORDER PUT THROUGH AND REP WILL BE CALLING.
--- NOTE | 2024-10-31 13:43 | NUR ---
DAUGHTER RERQUESTED TO SPEAK WITH THIS RN: STATES PATIENT IS VERY SELF-NEGLIGENT. HOUSE IS VERY DIRTY WITH MODLY FOOD IN [place]IDGE BECAUSE IT STOPPED WORKING AND SHE HAS NOT SINCE CLEANED IT OUT. HER HOUSE SMELLS OF URINE DUE TO PATIENT LEAVING SOILED BRIEFS IN [place] DUE TO MOT BEING ABLE TO MAKE IT OUT TO TAKE GARBAGE OUT. DAUGHTER IS UNABLE TO BE INVOLVED IN MOTHER'S CARE DUE TO PERSONAL REASONS. CASE MANAGEMENT INVOLVED.
[2024-10-31 16:02] VITALS: BP 83/69
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
[2024-10-31 19:25] VITALS: BP 101/51
[2024-11-01] VITALS (7 sets, daily range): BP systolic 98–109; BP diastolic 53–62
--- NOTE | 2024-11-01 04:01 | NUR ---
SHIFT SUMMARY NO ACUTE CHANGES THIS SHIFT. PT IS IN GOOD SPIRITS AND IS PLEASANT, COOPERATIVE WITH CARE. PT STATED THAT SHE IS ANXIOUS TO GET HOME AND GET CAUGHT UP ON HER YARD WORK, BUT THAT SHE DOESNT MIND BEING HERE IN THE HOSPITAL. NO C/O CHEST PAIN, SOB, PAIN, OR DISCOMFORT THIS SHIFT. O2 SATS HAVE REMAINED WNL. WILL CONTINUE TO MONITOR. BED IN LOW POSITION AND CALL LIGHT IN REACH.
--- NOTE | 2024-11-01 08:00 | NUR ---
This patient verbally agreed to work with this student.
[2024-11-01 08:42] LABS: Bun/Creatinine Ratio 26.4 (12.0-20.0); Calcium, Blood 8.8 mg/dL (8.5-10.1); Creatinine, Blood 0.64 mg/dL (0.40-1.00); Potassium, Blood 4.1 mmol/L (3.5-5.5)
[2024-11-01] MEDS ORDERED: Metoprolol Succinate 25 MG TABCR PO SCH (09:00)
[2024-11-01] MEDS ORDERED: ASPI81CH PO (16:55)
[2024-11-01] MEDS ORDERED: ATOR80 PO ×2 (16:56→16:59)
[2024-11-01] MEDS ORDERED: CLOP75 PO (16:59)
[2024-11-01] MEDS ORDERED: EUTHYROX50 MCG PO (17:00)
[2024-11-01] MEDS ORDERED: METO25ER PO (17:00)
[2024-11-01] MEDS ORDERED: THYR60 PO (17:00)
[2024-11-01] MEDS ORDERED: PANT40 PO (17:01)
--- NOTE | 2024-11-01 17:52 | NUR ---
DISCHARGE NOTE: ZOLL REP TO BEDSIDE TO SET UP LIFE VEST AND EDUCATE PATIENT. PT STATED UNDERSTANDING OF THE CONTINUOUS USE OF THE VEST AND THE NEED TO CONTINUE TO WEAR IT. PT VERBALIZED UNDERSTANDING OF NEED TO FOLLOW UP WITH PCP AND TO TAKE MEDICATIONS PRESCRIBED. PT ESCORTED TO DOOR BY WORD PROCESSOR OPERATOR FOR NEIGHBOR TO DRIVE HOME. PT DENIES NEEDS AT TIME OF DISCHARGE.
== END 2024-11-01 17:34 | disposition home health service (06) | DRG 321 ==
LOC: ER 02:07 → ICUE 02:08 → MEDS 10-29 17:51
PROVIDERS: Emergency Medicine; Family Medicine; Internal Medicine; ADMIT Student in an Organized Health Care Education/Training Program
PROC: 027034Z Dilation of Coronary Artery, One Artery with Drug-eluting Intraluminal Device, Percutaneous Approach (ICD-10-PCS; principal; 2024-10-27)
PROC: 02C03ZZ Extirpation of Matter from Coronary Artery, One Artery, Percutaneous Approach (ICD-10-PCS; 2024-10-27)
PROC: B2111ZZ Fluoroscopy of Multiple Coronary Arteries using Low Osmolar Contrast (ICD-10-PCS; 2024-10-27)
PROC: 4A023N7 Measurement of Cardiac Sampling and Pressure, Left Heart, Percutaneous Approach (ICD-10-PCS; 2024-10-27)
PROC: B240ZZ3 Ultrasonography of Single Coronary Artery, Intravascular (ICD-10-PCS; 2024-10-27)
PROC: 5A1223Z Performance of Cardiac Pacing, Continuous (ICD-10-PCS; 2024-10-27)
PROC: 02HV33Z Insertion of Infusion Device into Superior Vena Cava, Percutaneous Approach (ICD-10-PCS; 2024-10-27)
PROC: B5181ZA Fluoroscopy of Superior Vena Cava using Low Osmolar Contrast, Guidance (ICD-10-PCS; 2024-10-27)
DX: I21.19 ST elevation (STEMI) myocardial infarction involving other coronary artery of inferior wall (principal); R57.0 Cardiogenic shock; J84.9 Interstitial pulmonary disease, unspecified; I44.2 Atrioventricular block, complete; I50.42 Chronic combined systolic (congestive) and diastolic (congestive) heart failure; Z96.651 Presence of right artificial knee joint; E66.9 Obesity, unspecified; G47.33 Obstructive sleep apnea (adult) (pediatric); I11.0 Hypertensive heart disease with heart failure; E05.00 Thyrotoxicosis with diffuse goiter without thyrotoxic crisis or storm; E78.5 Hyperlipidemia, unspecified; I25.10 Atherosclerotic heart disease of native coronary artery without angina pectoris; E89.0 Postprocedural hypothyroidism; Z88.0 Allergy status to penicillin; Z88.8 Allergy status to other drugs, medicaments and biological substances; Z88.5 Allergy status to narcotic agent; Z79.890 Hormone replacement therapy; Z79.899 Other long term (current) drug therapy; Z79.2 Long term (current) use of antibiotics; Z85.3 Personal history of malignant neoplasm of breast; Z90.11 Acquired absence of right breast and nipple; Z68.25 Body mass index [BMI] 25.0-25.9, adult; Z95.5 Presence of coronary angioplasty implant and graft
CPT/HCPCS: 33210; 36415; 71045; 76937; 80047; 80048; 80053; 80061; 82803; 83036; 83735; 83880; 84100; 84443; 84484; 85014; 85025; 85347; 85379; 85610; 85730; 87428-QW; 92973; 92978; 93005; 93010; 93306; 93454; 96365; 96368; 96372; 96375; 96376; 97165; 99152; 99153; 99291-25; A9270; C1725; C1753; C1769; C1874; C1887; C1894; C9606; G0378; J0171; J0461; J1265; J1644; J1940; J2250; J2405; J2760; J3010; J3246; J7030; J7050; J7060; Q9967

== ENCOUNTER → 2024-12-29 | Outpatient (CLI) | payer OTHER ==
[~2024-12-29] MED LIST changes: +ASPI81CH PO; +ATOR80 PO; +CLOP75 PO; +EUTHYROX50 MCG PO; +METO25ER PO; +PANT40 PO
[2024-12-29 12:47] LABS: BASOPHILS ABSOLUTE AUTO 0.04 K/mm3 (0.00-0.23); BASOPHILS PERCENT AUTO 1 % (0-2); EOSINOPHILS ABSOLUTE AUTO 0.24 K/mm3 (0.00-0.68); EOSINOPHILS PERCENT AUTO 5 % (0-6); Hematocrit 35.6 % (33.0-51.0); Hemoglobin 10.8 g/dL (11.5-16.0); IMMATURE GRAN ABSOLUTE AUTO 0.02 K/mm3 (0.00-0.10); IMMATURE GRAN PERCENT AUTO 0 % (0-1); LYMPHOCYTES ABSOLUTE AUTO 1.04 K/mm3 (0.84-5.20); LYMPHOCYTES PERCENT AUTO 20 % (21-46); MONOCYTES ABSOLUTE AUTO 0.52 K/mm3 (0.16-1.47); MONOCYTES PERCENT AUTO 10 % (4-13); Mean Corpuscular HGB 26.3 pg (26.0-34.0); Mean Corpuscular HGB Conc 30.3 g/dL (31.5-36.5); Mean Corpuscular Volume 87 fL (80-100); Mean Platelet Volume 11.2 fL (9.1-12.4); NEUTROPHILS ABSOLUTE AUTO 3.42 K/mm3 (1.96-9.15); NEUTROPHILS PERCENT AUTO 65 % (41-73); Platelet Count 181 K/mm3 (150-400); RDW Coefficient Variation 16.5 % (11.7-14.2); RDW Standard Deviation 51.3 fL (35.1-46.3); Red Blood Cell Count 4.11 M/mm3 (3.80-5.20); White Blood Cell Count 5.28 K/mm3 (4.00-11.30)
[2024-12-29 13:50] LABS: Albumin, Blood 3.2 g/dL (3.4-5.0); Albumin/Globulin Ratio 0.8 (0.8-1.8); Bilirubin, Total 1.4 mg/dL (0.1-1.0); Bun/Creatinine Ratio 16.4 (12.0-20.0); Calcium, Blood 8.6 mg/dL (8.5-10.1); Creatinine, Blood 0.79 mg/dL (0.40-1.00); Globulin, Blood 3.9 g/dL (2.2-4.0); Potassium, Blood 4.2 mmol/L (3.5-5.5); Thyroid Stimulating Hormone 9.08 uIU/mL (0.360-4.800); Total Protein, Blood 7.1 g/dL (6.4-8.2)
== END ==
LOC: LAB SHORT 12:39 → LAB 12:39
PROVIDERS: Family Medicine
DX: I50.9 Heart failure, unspecified (principal); E05.00 Thyrotoxicosis with diffuse goiter without thyrotoxic crisis or storm; R53.83 Other fatigue
CPT/HCPCS: 80053; 83880; 84443; 85025